=== PATIENT | female | born 1985 | race Caucasian/White ===

== ENCOUNTER 2019-01-19 04:30 | Emergency (ER) | payer OTHER ==
[~2019-01-19] VITALS: Ht 157.5 cm; Wt 56.7 kg
[~2019-01-19 04:30] MED LIST: ALBIPROI INH; ALBU90OI INH; CODACE30 PO; DOXY100 PO; HYDACE5 PO; HYDGUAL120 PO; MEMORY; MULVITMINE; NITR100CA PO; OXYACE5T PO; PENVK500 PO; PRED20 PO; RXCODACET PO; RXPENVK250 PO; RXTRAM50 PO; STOMUL; SULTRIDS PO; SULTRISS PO; TRAM50 PO; [UNRECOGNIZED DRUG - OTHER]
== END 2019-01-19 05:55 | disposition home or self-care (01) ==
LOC: ER 04:30
DX: S00.81XA Abrasion of other part of head, initial encounter (principal); F15.10 Other stimulant abuse, uncomplicated; F41.9 Anxiety disorder, unspecified; T69.9XXA Effect of reduced temperature, unspecified, initial encounter; X31.XXXA Exposure to excessive natural cold, initial encounter; Z88.8 Allergy status to other drugs, medicaments and biological substances; Z88.6 Allergy status to analgesic agent; Z79.899 Other long term (current) drug therapy; F43.10 Post-traumatic stress disorder, unspecified; F31.9 Bipolar disorder, unspecified; F17.200 Nicotine dependence, unspecified, uncomplicated

== ENCOUNTER 2019-02-19 02:48 | Emergency (ER) | payer SELFPAY ==
[~2019-02-19] VITALS: Ht 157.5 cm; Wt 56.7 kg
[2019-02-19 03:34] LABS: BASOPHILS ABSOLUTE AUTO 0.05 K/mm3 (0.00-0.23); BASOPHILS PERCENT AUTO 0 % (0-2); EOSINOPHILS ABSOLUTE AUTO 0.09 K/mm3 (0.00-0.68); EOSINOPHILS PERCENT AUTO 1 % (0-6); Hematocrit 31.4 % (33.0-51.0); Hemoglobin 8.4 g/dL (11.5-16.0); IMMATURE GRAN ABSOLUTE AUTO 0.05 K/mm3 (0.00-0.10); IMMATURE GRAN PERCENT AUTO 0 % (0-1); LYMPHOCYTES ABSOLUTE AUTO 2.96 K/mm3 (0.84-5.20); LYMPHOCYTES PERCENT AUTO 22 % (21-46); MONOCYTES ABSOLUTE AUTO 0.92 K/mm3 (0.16-1.47); MONOCYTES PERCENT AUTO 7 % (4-13); Mean Corpuscular HGB 17.5 pg (26.0-34.0); Mean Corpuscular HGB Conc 26.8 g/dL (31.5-36.5); Mean Corpuscular Volume 66 fL (80-100); Mean Platelet Volume 8.4 fL (9.1-12.4); NEUTROPHILS ABSOLUTE AUTO 9.66 K/mm3 (1.96-9.15); NEUTROPHILS PERCENT AUTO 70 % (41-73); Platelet Count 601 K/mm3 (150-400); RDW Coefficient Variation 17.6 % (11.7-14.2); RDW Standard Deviation 40.6 fL (35.1-46.3); Red Blood Cell Count 4.79 M/mm3 (3.80-5.20); White Blood Cell Count 13.73 K/mm3 (4.00-11.30)
[2019-02-19 03:59] LABS: Alanine Aminotransfer (ALT/SGP 43 U/L (12-78); Albumin, Blood 3.7 g/dL (3.4-5.0); Albumin/Globulin Ratio 0.9 (0.8-1.8); Alk Phos 134 U/L (50-136); Anion Gap 8 mmol/L (6-16); Aspartate Aminotrans (AST/SGOT 23 U/L (12-37); Bilirubin, Total 0.5 mg/dL (0.1-1.0); Blood Urea Nitrogen 11 mg/dL (8-24); Bun/Creatinine Ratio 24.4 (12.0-20.0); CO2, Blood 24 mmol/L (21-32); Calcium, Blood 8.8 mg/dL (8.5-10.1); Chloride, Blood 106 mmol/L (98-108); Creatinine, Blood 0.45 mg/dL (0.40-1.00); Globulin, Blood 4.2 g/dL (2.2-4.0); Glomerular Filtration Rate >60 (60-); Glucose, Blood 86 mg/dL (70-99); Potassium, Blood 3.8 mmol/L (3.5-5.5); Sodium, Blood 138 mmol/L (136-145); Total Protein, Blood 7.9 g/dL (6.4-8.2)
[2019-02-19] MEDS ORDERED: Vibramycin100 MG PO (04:08)
== END 2019-02-19 04:26 | disposition home or self-care (01) ==
LOC: ER 02:48
PROVIDERS: Emergency Medicine
DX: R10.9 Unspecified abdominal pain (principal); F15.10 Other stimulant abuse, uncomplicated; D50.9 Iron deficiency anemia, unspecified; F42.4 Excoriation (skin-picking) disorder; L03.211 Cellulitis of face; L03.221 Cellulitis of neck; L03.114 Cellulitis of left upper limb; L03.113 Cellulitis of right upper limb; F43.10 Post-traumatic stress disorder, unspecified; F32.9 Major depressive disorder, single episode, unspecified; F31.9 Bipolar disorder, unspecified; F17.200 Nicotine dependence, unspecified, uncomplicated; Z88.8 Allergy status to other drugs, medicaments and biological substances; Z88.0 Allergy status to penicillin; Z79.899 Other long term (current) drug therapy
CPT/HCPCS: 36415; 80053; 83690; 85025; 99284